=== PATIENT | female | born 2000 | race Hispanic/Latino ===

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

== ENCOUNTER → 2021-08-24 | Outpatient (CLI) | payer BC, MEDICAID | LOC: RAH 10:59 | PROVIDERS: ATTEND Obstetrics & Gynecology | DX: O20.0 Threatened abortion (principal); Z3A.08 8 weeks gestation of pregnancy | CPT/HCPCS: 76801 ==